=== PATIENT | male | born 1975 | race Caucasian/White ===

== ENCOUNTER 2020-03-11 17:05 | Inpatient (IN) | payer MEDICAID, OTHER, SELFPAY ==
[~2020-03-11] VITALS: Ht 157.5 cm; Wt 119.7 kg
[~2020-03-11 17:05] MED LIST: LIDOCAINE HCL/PF 1% 2ML VIAL ONE
[2020-03-11] MEDS ORDERED: SODIUM CHLORIDE 0.9% 1,000 ML IV ONE (17:28)
[2020-03-11 17:57] LABS: BG BASE EXCESS -9.7 mmol/L (-2.0-2.0); BG CARBOXYHEMOGLOBIN 0.3 % (0.5-1.5); BG DEOXYHEMOGLOBIN 3.1 % (0.0-5.0); BG HCO3 ACT 16.1 mmol/L (22.0-26.0); BG OXYGEN SATURATION 96.9 % (92.0-98.5); BG OXYHEMOGLOBIN 96.6 % (94.0-97.0); BG PCO2 34.5 mmHg (35.0-45.0); BG PH 7.286 (7.350-7.450); BG PO2 103.6 mmHg (75.0-100.0); BG SAMPLE SITE LEFT BRACHIAL; BG TOTAL HEMOGLOBIN 10.2 g/dL (12.0-18.0); BG VENT MODE ROOM AIR
[2020-03-11 18:13] LABS: BASOPHILS % 0.3 % (0.0-2.0); EOSINOPHILS % 0.3 % (0.0-5.0); HEMATOCRIT. 24.4 % (42.0-52.0); HEMOGLOBIN. 8.2 g/dL (14.0-18.0); LYMPHOCYTES % 8.4 % (20.0-50.0); MEAN CORPUSCULAR HEMOGLOBIN 29.9 pg (28.0-32.0); MEAN CORPUSCULAR VOLUME 88.9 fL (80.0-94.0); MEAN PLATELET VOLUME 9.4 fl (7.4-10.4); MONOCYTES % 4.8 % (2.0-8.0); NEUTROPHILS % 86.2 % (40.0-76.0); PLATELET 178 x1000/uL (130-400); RED BLOOD CELL COUNT 2.75 mill/uL (4.7-6.1)
[2020-03-11 18:20] LABS: CHLORIDE 107 mEq/L (98-107)
[2020-03-11 18:26] LABS: PHOSPHORUS 7.3 mg/dL (2.5-4.9)
[2020-03-11 18:37] LABS: INR 1.1; PROTHROMBIN TIME 11.7 sec (9.6-11.0)
[2020-03-11] MEDS ORDERED: WATER IV ONE (18:45)
[2020-03-11] MEDS ORDERED: CALCIUM GLUCONATE IV ONE (18:45)
[2020-03-11] MEDS ORDERED: DEXTROSE 5% IV ONE (18:45)
[2020-03-11] MEDS ORDERED: ALBUTEROL (0.083%) 2.5MG/3ML NEB HHN ONE (18:45)
[2020-03-11] MEDS ORDERED: INSULIN REGULAR (HUMULIN R) UD 100 UNITS/ML SYR IV ONE (19:00)
[2020-03-11] MEDS ORDERED: DEXT 5% IV NR ×2 (19:00→22:30)
[2020-03-11] MEDS ORDERED: CALCIUM GLUCONATE IV NR ×2 (19:00→22:30)
[2020-03-11] MEDS ORDERED: DEXTROSE 50% WATER 50ML SYRINGE IV ONE (19:00)
[2020-03-11] MEDS ORDERED: CALCIUM GLUCONATE 3,000 MG in DEXT 5% WATER 250 ML IV NR (19:00)
[2020-03-11] MEDS ORDERED: WATER IV NR ×2 (19:00→22:30)
[2020-03-11 19:32] LABS: CLARITY URINE TURBID (CLEAR); COLOR URINE YELLOW (YELLOW); KETONES URINE NEGATIVE (NEGATIVE); LEUKOCYTE ESTERASE URINE TRACE (NEGATIVE); NITRITE URINE NEGATIVE (NEGATIVE); OCCULT BLOOD URINE 1+ (NEGATIVE); PROTEIN URINE 4+ (NEGATIVE); SPECIFIC GRAVITY URINE 1.026 (1.005-1.030); UROBILINOGEN URINE 0.2 E.U./dL (0.2-1.0)
[2020-03-11] MEDS ORDERED: SODIUM BICARBONATE 8.4% 1 MEQ/ML 50ML SYR IV ONE ×2 (19:45→21:45)
[2020-03-11] MEDS ORDERED: INSULIN REGULAR (HUMULIN R) 300UNITS/3ML IV ONE (20:00)
[2020-03-11] MEDS ORDERED: LIDOCAINE HCL/PF 1% 2ML VIAL ONE (20:00)
[2020-03-11 21:18] LABS: CHLORIDE 106 mEq/L (98-107)
[2020-03-11 21:24] LABS: PHOSPHORUS 6.7 mg/dL (2.5-4.9)
[2020-03-11] MEDS ORDERED: LIDOCAINE HCL 1% 20ML VIAL (Pyxis) INJ INFIL ONE (21:45)
[2020-03-11] MEDS ORDERED: CALCIUM GLUCONATE 100MG/ML 10ML VIAL IV ONE (21:45)
[2020-03-12] VITALS (67 sets, daily range): BP systolic 125–230; BP diastolic 66–122
[2020-03-12] MEDS ORDERED: ONDANSETRON HCL 4MG/2ML INJ IV PRN (00:15)
[2020-03-12] MEDS ORDERED: DEXTROSE 50% WATER 50ML SYRINGE IV PRN (00:15)
[2020-03-12] MEDS ORDERED: DIPHENHYDRAMINE 50MG/ML VIAL IV PRN (00:15)
[2020-03-12] MEDS ORDERED: ACETAMINOPHEN 325MG TABLET PO PRN (00:15)
[2020-03-12] MEDS ORDERED: SODIUM POLYSTYRENE SULFONATE 15 G/60 ML BOT PO SCH (01:00)
[2020-03-12] MEDS: CLONIDINE 0.1MG TABLET PO PRN ×3 (02:32→21:55)
[2020-03-12] MEDS: LABETALOL 5MG/ML SYR 20 MG/4 ML SYRINGE IV PRN (03:59)
[2020-03-12] MEDS ORDERED: DIATR MEGLU/DIATRIZOATE SOLN 30ML PO SCH (04:45)
[2020-03-12] MEDS ORDERED: NICARDIPINE 100 MG in SODIUM CHLORIDE 0.9% 60 ML IV PRN (05:30)
[2020-03-12] MEDS: PANTOPRAZOLE SODIUM 40 MG/VIAL IV SCH (05:33)
[2020-03-12] MEDS: DEXT 5%/0.9% NACL 1,000 ML IV SCH (05:34)
[2020-03-12] MEDS: SODIUM CHLORIDE 0.9% INJ 3ML FLUSH IVF SCH ×3 (06:00→21:56)
[2020-03-12] MEDS: BLOOD SUGAR DIAGNOSTIC STRIP TEST SCH ×4 (06:30→21:55)
[2020-03-12] MEDS: INSULIN LISPRO 100 UNITS/ML SUBCUT SCH ×4 (07:00→21:00)
[2020-03-12] MEDS ORDERED: DILT120C11 MT (07:56)
[2020-03-12] MEDS ORDERED: CHLO25TA2 PO (08:00)
[2020-03-12] MEDS ORDERED: FERR325T6 PO (08:02)
[2020-03-12] MEDS ORDERED: LISI40TA4 PO (08:04)
[2020-03-12] MEDS ORDERED: ATOR40TA70 PO (08:05)
[2020-03-12] MEDS: LISINOPRIL 40MG TABLET PO SCH ×2 (09:00→14:30)
[2020-03-12 09:31] LABS: BASOPHILS % 0.2 % (0.0-2.0); EOSINOPHILS % 0.1 % (0.0-5.0); HEMATOCRIT. 25.2 % (42.0-52.0); HEMOGLOBIN. 8.5 g/dL (14.0-18.0); LYMPHOCYTES % 9.3 % (20.0-50.0); MEAN CORPUSCULAR HEMOGLOBIN 29.6 pg (28.0-32.0); MEAN PLATELET VOLUME 8.8 fl (7.4-10.4); MONOCYTES % 6.9 % (2.0-8.0); NEUTROPHILS % 83.5 % (40.0-76.0); PLATELET 191 x1000/uL (130-400); RED BLOOD CELL COUNT 2.86 mill/uL (4.7-6.1); RED CELL DISTRIBUTION WIDTH 14.8 % (11.6-14.6)
[2020-03-12] MEDS ORDERED: INSULIN GLARGINE UD 100 UNITS/ML SYR SUBCUT SCH (10:00)
[2020-03-12] MEDS ORDERED: CEFTRIAXONE 1 G PREMIX 50 ML IV SCH (12:45)
[2020-03-12 13:16] LABS: HEPATITIS B SURFACE AB < 3.1 mIU/mL
[2020-03-12 13:26] LABS: HEPATITIS B SURFACE ANTIGEN NEGATIVE
[2020-03-12 13:56] LABS: HEPATITIS A AB IGM NEGATIVE (NEGATIVE)
[2020-03-12] MEDS: CEFTRIAXONE 1,000 MG in DEXTROSE 5% WATER 50 ML IV SCH (14:27)
[2020-03-12] MEDS: HYDRALAZINE HCL 50MG TABLET PO SCH ×2 (15:33→21:54)
[2020-03-12] MEDS: AMLODIPINE 5MG TABLET PO SCH (15:33)
[2020-03-12] MEDS ORDERED: DIATR MEGLU/DIATRIZOATE SOLN 30ML PO NR (18:30)
[2020-03-12] MEDS: ATORVASTATIN CALCIUM 40MG TABLET PO SCH (21:54)
[2020-03-13 00:19] VITALS: BP 157/70
[2020-03-13 04:00] VITALS: BP 160/73
[2020-03-13] MEDS: HYDRALAZINE HCL 50MG TABLET PO SCH ×3 (05:56→21:51)
[2020-03-13] MEDS: DEXT 5%/0.9% NACL 1,000 ML IV SCH ×2 (05:56→16:50)
[2020-03-13] MEDS: SODIUM CHLORIDE 0.9% INJ 3ML FLUSH IVF SCH ×3 (05:56→21:51)
[2020-03-13] MEDS: BLOOD SUGAR DIAGNOSTIC STRIP TEST SCH ×4 (06:31→21:50)
[2020-03-13 06:42] LABS: BASOPHILS % 0.5 % (0.0-2.0); EOSINOPHILS % 2.3 % (0.0-5.0); HEMOGLOBIN. 8.5 g/dL (14.0-18.0); LYMPHOCYTES % 13.2 % (20.0-50.0); MEAN CORPUSCULAR HEMOGLOBIN 29.7 pg (28.0-32.0); MEAN CORPUSCULAR VOLUME 87.5 fL (80.0-94.0); MEAN PLATELET VOLUME 8.6 fl (7.4-10.4); MONOCYTES % 11.5 % (2.0-8.0); NEUTROPHILS % 72.5 % (40.0-76.0); PLATELET 190 x1000/uL (130-400); RED BLOOD CELL COUNT 2.86 mill/uL (4.7-6.1); RED CELL DISTRIBUTION WIDTH 14.4 % (11.6-14.6)
[2020-03-13 08:02] VITALS: BP 157/70
[2020-03-13] MEDS: AMLODIPINE 5MG TABLET PO SCH (08:52)
[2020-03-13] MEDS: PANTOPRAZOLE SODIUM 40 MG/VIAL IV SCH (08:52)
[2020-03-13] MEDS: LISINOPRIL 40MG TABLET PO SCH (08:52)
[2020-03-13] MEDS: INSULIN LISPRO 100 UNITS/ML SUBCUT SCH ×4 (08:56→21:52)
[2020-03-13] MEDS ORDERED: POTASSIUM CHLORIDE 10MEQ TABLET SR PO SCH (10:15)
[2020-03-13] MEDS ORDERED: POTASSIUM CHLORIDE 20MEQ TABLET SR PO NR (10:30)
[2020-03-13] MEDS: INSULIN GLARGINE UD 100 UNITS/ML SYR SUBCUT SCH (11:41)
[2020-03-13 11:56] VITALS: BP 150/71
[2020-03-13] MEDS: CEFTRIAXONE 1,000 MG in DEXTROSE 5% WATER 50 ML IV SCH (14:39)
[2020-03-13 16:09] VITALS: BP 174/71
[2020-03-13 20:39] VITALS: BP 183/90
[2020-03-13] MEDS: ATORVASTATIN CALCIUM 40MG TABLET PO SCH (21:51)
[2020-03-14] VITALS: BP 164/96
[2020-03-14] MEDS: CLONIDINE 0.1MG TABLET PO PRN ×2 (01:36→21:20)
[2020-03-14 04:00] VITALS: BP 148/76
[2020-03-14] MEDS: HYDRALAZINE HCL 50MG TABLET PO SCH ×3 (06:04→21:19)
[2020-03-14] MEDS: SODIUM CHLORIDE 0.9% INJ 3ML FLUSH IVF SCH ×3 (06:04→21:20)
[2020-03-14 06:46] LABS: BASOPHILS % 0.4 % (0.0-2.0); EOSINOPHILS % 2.5 % (0.0-5.0); HEMATOCRIT. 27.8 % (42.0-52.0); HEMOGLOBIN. 9.3 g/dL (14.0-18.0); MEAN CORPUSCULAR HEMOGLOBIN 29.7 pg (28.0-32.0); MEAN CORPUSCULAR VOLUME 88.2 fL (80.0-94.0); MEAN PLATELET VOLUME 8.8 fl (7.4-10.4); MONOCYTES % 10.4 % (2.0-8.0); NEUTROPHILS % 69.7 % (40.0-76.0); PLATELET 228 x1000/uL (130-400); RED BLOOD CELL COUNT 3.15 mill/uL (4.7-6.1); RED CELL DISTRIBUTION WIDTH 14.7 % (11.6-14.6)
[2020-03-14] MEDS ORDERED: HEPARIN 100 UNITS/1 ML VIAL IVF ONE (07:00)
[2020-03-14] MEDS: BLOOD SUGAR DIAGNOSTIC STRIP TEST SCH ×4 (07:09→21:20)
[2020-03-14 08:00] VITALS: BP 146/81
[2020-03-14] MEDS: AMLODIPINE 5MG TABLET PO SCH (09:00)
[2020-03-14] MEDS: LISINOPRIL 40MG TABLET PO SCH (09:00)
[2020-03-14] MEDS: INSULIN GLARGINE UD 100 UNITS/ML SYR SUBCUT SCH (10:00)
[2020-03-14] MEDS: PANTOPRAZOLE SODIUM 40 MG/VIAL IV SCH (10:54)
[2020-03-14] MEDS: INSULIN LISPRO 100 UNITS/ML SUBCUT SCH ×4 (10:55→21:30)
[2020-03-14 12:00] VITALS: BP 168/72
[2020-03-14] MEDS: CEFTRIAXONE 1,000 MG in DEXTROSE 5% WATER 50 ML IV SCH (15:45)
[2020-03-14] MEDS: DEXT 5%/0.9% NACL 1,000 ML IV SCH (15:45)
[2020-03-14 15:52] VITALS: BP 157/63
[2020-03-14] MEDS ORDERED: POTASSIUM CHLORIDE 20MEQ/PACKET PO NR (17:15)
[2020-03-14 20:00] VITALS: BP 178/94
[2020-03-14] MEDS: ATORVASTATIN CALCIUM 40MG TABLET PO SCH (21:19)
[2020-03-14 21:45] LABS: CREATININE URINE (RAW) 88.8 mg/dl
[2020-03-15] VITALS: BP 135/73
[2020-03-15 04:00] VITALS: BP 174/97
[2020-03-15] MEDS: CLONIDINE 0.1MG TABLET PO PRN (06:59)
[2020-03-15] MEDS: SODIUM CHLORIDE 0.9% INJ 3ML FLUSH IVF SCH ×3 (06:59→21:18)
[2020-03-15] MEDS: HYDRALAZINE HCL 50MG TABLET PO SCH ×3 (06:59→21:17)
[2020-03-15] MEDS: BLOOD SUGAR DIAGNOSTIC STRIP TEST SCH ×4 (07:00→21:18)
[2020-03-15] MEDS: DEXT 5%/0.9% NACL 1,000 ML IV SCH ×2 (07:00→13:46)
[2020-03-15 08:00] VITALS: BP 166/92
[2020-03-15] MEDS: FAMOTIDINE 20MG/2ML VIAL IV SCH (09:49)
[2020-03-15] MEDS: AMLODIPINE 5MG TABLET PO SCH (09:50)
[2020-03-15] MEDS: INSULIN GLARGINE UD 100 UNITS/ML SYR SUBCUT SCH (09:52)
[2020-03-15] MEDS: INSULIN LISPRO 100 UNITS/ML SUBCUT SCH ×4 (10:34→21:19)
[2020-03-15 12:00] VITALS: BP 133/76
[2020-03-15] MEDS: LISINOPRIL 40MG TABLET PO SCH (13:37)
[2020-03-15] MEDS: CEFTRIAXONE 1,000 MG in DEXTROSE 5% WATER 50 ML IV SCH (15:07)
[2020-03-15 16:00] VITALS: BP 156/86
[2020-03-15] MEDS ORDERED: INFLUENZA VACCINE 05/PF 0.5 ML VIAL IM ONE (16:00)
[2020-03-15 16:10] LABS: BASOPHILS % 0.5 % (0.0-2.0); EOSINOPHILS % 3.3 % (0.0-5.0); HEMATOCRIT. 24.4 % (42.0-52.0); HEMOGLOBIN. 8.2 g/dL (14.0-18.0); LYMPHOCYTES % 14.1 % (20.0-50.0); MEAN CORPUSCULAR HEMOGLOBIN 29.4 pg (28.0-32.0); MEAN CORPUSCULAR VOLUME 88.2 fL (80.0-94.0); MEAN PLATELET VOLUME 7.8 fl (7.4-10.4); MONOCYTES % 13.7 % (2.0-8.0); NEUTROPHILS % 68.4 % (40.0-76.0); PLATELET 183 x1000/uL (130-400); RED BLOOD CELL COUNT 2.77 mill/uL (4.7-6.1); RED CELL DISTRIBUTION WIDTH 14.6 % (11.6-14.6)
[2020-03-15 20:00] VITALS: BP 184/95
[2020-03-15] MEDS: ATORVASTATIN CALCIUM 40MG TABLET PO SCH (21:16)
[2020-03-16] VITALS: BP 180/98
[2020-03-16] MEDS: DEXT 5%/0.9% NACL 1,000 ML IV SCH (02:02)
[2020-03-16] MEDS: LABETALOL 5MG/ML SYR 20 MG/4 ML SYRINGE IV PRN (02:02)
[2020-03-16 04:00] VITALS: BP 147/83
[2020-03-16] MEDS: SODIUM CHLORIDE 0.9% INJ 3ML FLUSH IVF SCH ×3 (05:27→21:10)
[2020-03-16] MEDS: HYDRALAZINE HCL 50MG TABLET PO SCH ×3 (05:28→21:10)
[2020-03-16 07:00] LABS: BASOPHILS % 0.2 % (0.0-2.0); EOSINOPHILS % 2.7 % (0.0-5.0); HEMATOCRIT. 25.7 % (42.0-52.0); HEMOGLOBIN. 8.7 g/dL (14.0-18.0); MEAN CORPUSCULAR HEMOGLOBIN 30.2 pg (28.0-32.0); MEAN CORPUSCULAR VOLUME 89.1 fL (80.0-94.0); MEAN PLATELET VOLUME 8.2 fl (7.4-10.4); NEUTROPHILS % 71.1 % (40.0-76.0); PLATELET 211 x1000/uL (130-400); RED BLOOD CELL COUNT 2.89 mill/uL (4.7-6.1); RED CELL DISTRIBUTION WIDTH 14.6 % (11.6-14.6)
[2020-03-16] MEDS: BLOOD SUGAR DIAGNOSTIC STRIP TEST SCH ×4 (07:10→21:10)
[2020-03-16] MEDS: INSULIN LISPRO 100 UNITS/ML SUBCUT SCH ×4 (07:50→21:16)
[2020-03-16 08:00] VITALS: BP 139/77
[2020-03-16] MEDS: AMLODIPINE 5MG TABLET PO SCH (09:32)
[2020-03-16] MEDS: FAMOTIDINE 20MG/2ML VIAL IV SCH (09:32)
[2020-03-16] MEDS: INSULIN GLARGINE UD 100 UNITS/ML SYR SUBCUT SCH (09:33)
[2020-03-16] MEDS: LISINOPRIL 40MG TABLET PO SCH (09:33)
[2020-03-16] MEDS ORDERED: CALCIUM CARBONATE/VITAMIN D3 500MG TABLET PO SCH (10:30)
[2020-03-16 12:00] VITALS: BP 162/83
[2020-03-16] MEDS: CALCIUM ACETATE 667MG CAPSULE PO SCH ×2 (12:52→17:23)
[2020-03-16] MEDS: CEFTRIAXONE 1,000 MG in DEXTROSE 5% WATER 50 ML IV SCH (12:52)
[2020-03-16 16:02] VITALS: BP 166/87
[2020-03-16 20:25] VITALS: BP 180/87
[2020-03-16] MEDS: ATORVASTATIN CALCIUM 40MG TABLET PO SCH (21:09)
[2020-03-17] VITALS (16 sets, daily range): BP systolic 126–219; BP diastolic 63–93
[2020-03-17] MEDS ORDERED: DEXT 5%/0.9% NACL 1,000 ML IV ONE (00:01)
[2020-03-17] MEDS: CLONIDINE 0.1MG TABLET PO PRN ×2 (00:18→20:49)
[2020-03-17] MEDS: SODIUM CHLORIDE 0.9% INJ 3ML FLUSH IVF SCH ×3 (05:33→22:00)
[2020-03-17] MEDS: HYDRALAZINE HCL 50MG TABLET PO SCH ×3 (05:33→20:50)
[2020-03-17] MEDS: BLOOD SUGAR DIAGNOSTIC STRIP TEST SCH ×4 (06:20→20:49)
[2020-03-17] MEDS: INSULIN LISPRO 100 UNITS/ML SUBCUT SCH ×4 (07:50→20:49)
[2020-03-17] MEDS: FAMOTIDINE 20MG/2ML VIAL IV SCH (08:33)
[2020-03-17] MEDS: CALCIUM ACETATE 667MG CAPSULE PO SCH ×3 (08:33→20:49)
[2020-03-17] MEDS: LISINOPRIL 40MG TABLET PO SCH (09:00)
[2020-03-17] MEDS: AMLODIPINE 5MG TABLET PO SCH (09:00)
[2020-03-17] MEDS: INSULIN GLARGINE UD 100 UNITS/ML SYR SUBCUT SCH (09:49)
[2020-03-17] MEDS ORDERED: SODIUM BICARBONATE 4% (2.4MEQ) 5ML VIAL IV ONE (12:42)
[2020-03-17] MEDS ORDERED: LIDOCAINE HCL 1% 20ML VIAL (Pyxis) INJ ONE (12:42)
[2020-03-17] MEDS ORDERED: LIDOCAINE HCL/EPINEPHRINE 1%-EPI 1:100,000 20 ML VIAL ONE (12:43)
[2020-03-17] MEDS ORDERED: FENTANYL CITRATE/PF 50MCG/ML 2ML VIAL ONE (13:53)
[2020-03-17] MEDS ORDERED: FENTANYL CITRATE/PF 50MCG/ML 2ML VIAL IV ONE (14:15)
[2020-03-17] MEDS: CEFTRIAXONE 1,000 MG in DEXTROSE 5% WATER 50 ML IV SCH (14:47)
[2020-03-17] MEDS: ATORVASTATIN CALCIUM 40MG TABLET PO SCH (20:49)
[2020-03-17] MEDS: ACETAMINOPHEN 325MG TABLET PO PRN (23:52)
[2020-03-18] VITALS: BP 173/84
[2020-03-18 04:00] VITALS: BP 156/83
[2020-03-18] MEDS: HYDRALAZINE HCL 50MG TABLET PO SCH ×3 (06:20→22:29)
[2020-03-18] MEDS: BLOOD SUGAR DIAGNOSTIC STRIP TEST SCH ×4 (06:20→21:00)
[2020-03-18] MEDS: SODIUM CHLORIDE 0.9% INJ 3ML FLUSH IVF SCH ×3 (06:20→22:30)
[2020-03-18] MEDS: INSULIN LISPRO 100 UNITS/ML SUBCUT SCH ×3 (07:50→22:31)
[2020-03-18] MEDS: CALCIUM ACETATE 667MG CAPSULE PO SCH ×3 (08:12→17:58)
[2020-03-18 08:40] VITALS: BP 151/82
[2020-03-18] MEDS: AMLODIPINE 5MG TABLET PO SCH (09:00)
[2020-03-18] MEDS: LISINOPRIL 40MG TABLET PO SCH (09:00)
[2020-03-18] MEDS: FAMOTIDINE 20MG/2ML VIAL IV SCH (09:33)
[2020-03-18 12:22] VITALS: BP 142/90
[2020-03-18 16:15] VITALS: BP 175/101
[2020-03-18 20:12] VITALS: BP 190/95
[2020-03-18] MEDS: CLONIDINE 0.1MG TABLET PO PRN (20:14)
[2020-03-18] MEDS: ATORVASTATIN CALCIUM 40MG TABLET PO SCH (22:28)
[2020-03-19] VITALS (7 sets, daily range): BP systolic 137–185; BP diastolic 75–104
[2020-03-19] MEDS: ACETAMINOPHEN 325MG TABLET PO PRN (01:44)
[2020-03-19] MEDS: CLONIDINE 0.1MG TABLET PO PRN (02:35)
[2020-03-19] MEDS: HYDRALAZINE HCL 50MG TABLET PO SCH ×2 (06:06→13:55)
[2020-03-19] MEDS: SODIUM CHLORIDE 0.9% INJ 3ML FLUSH IVF SCH ×2 (06:08→14:01)
[2020-03-19] MEDS: BLOOD SUGAR DIAGNOSTIC STRIP TEST SCH ×2 (06:30→12:30)
[2020-03-19 07:24] LABS: BASOPHILS % 0.5 % (0.0-2.0); EOSINOPHILS % 3.8 % (0.0-5.0); HEMATOCRIT. 25.5 % (42.0-52.0); HEMOGLOBIN. 8.5 g/dL (14.0-18.0); LYMPHOCYTES % 19.9 % (20.0-50.0); MEAN CORPUSCULAR HEMOGLOBIN 29.7 pg (28.0-32.0); MEAN CORPUSCULAR VOLUME 89.3 fL (80.0-94.0); NEUTROPHILS % 64.8 % (40.0-76.0); RED BLOOD CELL COUNT 2.86 mill/uL (4.7-6.1); RED CELL DISTRIBUTION WIDTH 14.9 % (11.6-14.6)
[2020-03-19] MEDS: INSULIN LISPRO 100 UNITS/ML SUBCUT SCH ×2 (07:50→12:30)
[2020-03-19 08:29] LABS: PLATELET 206 x1000/uL (130-400)
[2020-03-19] MEDS: FAMOTIDINE 20MG/2ML VIAL IV SCH (08:57)
[2020-03-19] MEDS: CALCIUM ACETATE 667MG CAPSULE PO SCH ×2 (08:57→13:55)
[2020-03-19] MEDS: LISINOPRIL 40MG TABLET PO SCH (09:00)
[2020-03-19] MEDS: AMLODIPINE 5MG TABLET PO SCH (09:00)
[2020-03-19] MEDS ORDERED: HEPARIN SODIUM 1,000 UNIT/1ML VIAL IV ONE (10:00)
[2020-03-19] MEDS: INSULIN GLARGINE UD 100 UNITS/ML SYR SUBCUT SCH ×2 (10:00→11:20)
== END 2020-03-19 17:45 | disposition home or self-care (01) | DRG 425 ==
LOC: ER 17:05 → EDBEDREQTM 21:50 → EDBEDREQ 21:50 → ENRESERV 03-12 00:24 → MICUSO 03-12 02:16 → 7WST 03-12 20:18 → 6WST 03-12 23:32
PROVIDERS: ADMIT Internal Medicine; ATTEND Internal Medicine
PROC: 5A1D70Z Performance of Urinary Filtration, Intermittent, Less than 6 Hours Per Day (ICD-10-PCS; 2020-03-12)
PROC: 5A1D70Z Performance of Urinary Filtration, Intermittent, Less than 6 Hours Per Day (ICD-10-PCS; 2020-03-14)
PROC: 02HV33Z Insertion of Infusion Device into Superior Vena Cava, Percutaneous Approach (ICD-10-PCS; principal; 2020-03-17)
PROC: B518ZZA Fluoroscopy of Superior Vena Cava, Guidance (ICD-10-PCS; 2020-03-17)
PROC: B548ZZA Ultrasonography of Superior Vena Cava, Guidance (ICD-10-PCS; 2020-03-17)
PROC: 5A1D70Z Performance of Urinary Filtration, Intermittent, Less than 6 Hours Per Day (ICD-10-PCS; 2020-03-17)
PROC: 5A1D70Z Performance of Urinary Filtration, Intermittent, Less than 6 Hours Per Day (ICD-10-PCS; 2020-03-19)
DX: E87.5 Hyperkalemia (principal); R19.7 Diarrhea, unspecified; N18.6 End stage renal disease; N17.9 Acute kidney failure, unspecified; E78.00 Pure hypercholesterolemia, unspecified; E11.51 Type 2 diabetes mellitus with diabetic peripheral angiopathy without gangrene; E43 Unspecified severe protein-calorie malnutrition; D63.8 Anemia in other chronic diseases classified elsewhere; R74.01 Elevation of levels of liver transaminase levels; E78.5 Hyperlipidemia, unspecified; E87.2 Acidosis; E66.01 Morbid (severe) obesity due to excess calories; F10.11 Alcohol abuse, in remission; F14.11 Cocaine abuse, in remission; Y90.9 Presence of alcohol in blood, level not specified; E87.1 Hypo-osmolality and hyponatremia; R74.8 Abnormal levels of other serum enzymes; J96.00 Acute respiratory failure, unspecified whether with hypoxia or hypercapnia; Z20.828 Contact with and (suspected) exposure to other viral communicable diseases; D72.810 Lymphocytopenia; I13.2 Hypertensive heart and chronic kidney disease with heart failure and with stage 5 chronic kidney disease, or end stage renal disease; I50.9 Heart failure, unspecified; E11.22 Type 2 diabetes mellitus with diabetic chronic kidney disease; Z89.512 Acquired absence of left leg below knee; Z68.42 Body mass index [BMI] 45.0-49.9, adult; Z83.3 Family history of diabetes mellitus; Z99.2 Dependence on renal dialysis
CPT/HCPCS: 36415; 36558; 36600; 71045; 74176; 76937; 77001; 80048; 80053; 81003; 82010; 82375; 82570; 82575; 82805; 82962; 83036; 83605; 83735; 83880; 84100; 84145; 84156; 84484; 85025; 86705; 86706; 86709; 86803; 87340; 87635; 90686; 93005; 93970; 99152; 99153; C1750; C1769; C1893; C9113; J0610; J0696; J1642; J1644; J1815; J2405; J3010; J3490; J7030; J7042; J7060; Q9963; G0500

== ENCOUNTER 2020-05-21 09:14 | Emergency (ER) | payer MEDICAID ==
[~2020-05-21] VITALS: Ht 167.6 cm; Wt 77.0 kg
[~2020-05-21 09:14] MED LIST changes: +ATOR40TA70 PO; +CHLO25TA2 PO; +FERR325T6 PO; -LIDOCAINE HCL/PF 1% 2ML VIAL ONE; +LISI40TA4 PO
[2020-05-21] MEDS ORDERED: LABETALOL 5MG/ML SYR 20 MG/4 ML SYRINGE IV ONE (10:15)
[2020-05-21 11:34] LABS: BASOPHILS % 0.6 % (0.0-2.0); EOSINOPHILS % 2.8 % (0.0-5.0); HEMATOCRIT. 39.2 % (42.0-52.0); LYMPHOCYTES % 18.6 % (20.0-50.0); MEAN CORPUSCULAR HEMOGLOBIN 31.3 pg (28.0-32.0); MEAN CORPUSCULAR VOLUME 94.2 fL (80.0-94.0); MEAN PLATELET VOLUME 8.8 fl (7.4-10.4); MONOCYTES % 9.1 % (2.0-8.0); NEUTROPHILS % 68.9 % (40.0-76.0); PLATELET 254 x1000/uL (130-400); RED BLOOD CELL COUNT 4.16 mill/uL (4.7-6.1); RED CELL DISTRIBUTION WIDTH 17.7 % (11.6-14.6)
[2020-05-21 11:39] LABS: CHLORIDE 106 mEq/L (98-107)
[2020-05-21 12:07] LABS: PARTIAL THROMBOPLASTIN TIME 29.1 sec (23.4-31.0)
[2020-05-21 17:27] VITALS: BP 171/85
== END 2020-05-21 17:20 | disposition home or self-care (01) ==
LOC: ER 09:22
DX: T82.838A Hemorrhage due to vascular prosthetic devices, implants and grafts, initial encounter (principal); Y82.8 Other medical devices associated with adverse incidents; Y92.89 Other specified places as the place of occurrence of the external cause; I12.0 Hypertensive chronic kidney disease with stage 5 chronic kidney disease or end stage renal disease; N18.6 End stage renal disease; Z99.2 Dependence on renal dialysis
CPT/HCPCS: 36415; 71045; 80053; 85025; 85610; 85730; 86850; 86900; 86901; 93005; 96374; 99285; J3490

== ENCOUNTER 2021-08-28 09:49 | Inpatient (IN) | payer MEDICAID, OTHER ==
[~2021-08-28] VITALS: Ht 165.1 cm; Wt 132.9 kg
[~2021-08-28 09:49] MED LIST changes: +LISI40TA13 PO; -LISI40TA4 PO
[2021-08-28 10:50] LABS: BASOPHILS % 0.2 % (0.0-2.0); EOSINOPHILS % 1.4 % (0.0-5.0); HEMATOCRIT. 31.7 % (42.0-52.0); HEMOGLOBIN. 10.7 g/dL (14.0-18.0); LYMPHOCYTES % 14.2 % (20.0-50.0); MEAN CORPUSCULAR HEMOGLOBIN 32.2 pg (28.0-32.0); MEAN CORPUSCULAR VOLUME 95.6 fL (80.0-94.0); MONOCYTES % 6.4 % (2.0-8.0); NEUTROPHILS % 77.8 % (40.0-76.0); PLATELET 175 x1000/uL (130-400); RED BLOOD CELL COUNT 3.31 mill/uL (4.7-6.1); RED CELL DISTRIBUTION WIDTH 15.9 % (11.6-14.6)
[2021-08-28 10:58] LABS: CHLORIDE 101 mEq/L (98-107)
[2021-08-28] MEDS ORDERED: INSULIN REGULAR (HUMULIN R) 300UNITS/3ML VIAL IV ONE (11:45)
[2021-08-28] MEDS ORDERED: ALBUTEROL (0.083%) 2.5MG/3ML NEB HHN ONE (11:45)
[2021-08-28] MEDS ORDERED: DEXTROSE 50% WATER 50ML SYRINGE IV ONE (11:45)
[2021-08-28] MEDS ORDERED: ALBUTEROL (0.5%) 2.5MG/0.5ML NEB HHN NR (12:45)
[2021-08-28] MEDS ORDERED: LORAZEPAM 2MG/ML CPJ IV PRN (13:15)
[2021-08-28] MEDS ORDERED: DEXTROSE 50% WATER 50ML SYRINGE IV PRN (13:15)
[2021-08-28] MEDS: AMLODIPINE 10MG TABLET PO SCH (13:30)
[2021-08-28] MEDS: INSULIN LISPRO 100 UNITS/ML SUBCUT SCH ×3 (13:58→20:58)
[2021-08-28 13:59] LABS: HEPATITIS B SURFACE ANTIGEN NEGATIVE
[2021-08-28] MEDS: BLOOD SUGAR DIAGNOSTIC STRIP TEST SCH ×3 (14:01→20:57)
[2021-08-28] MEDS: ONDANSETRON HCL 4MG/2ML INJ IV PRN (14:40)
[2021-08-28] MEDS: LEVETIRACETAM 500MG TABLET PO SCH (21:31)
[2021-08-28 22:55] VITALS: BP 133/70
[2021-08-29] VITALS: BP 112/55
[2021-08-29] MEDS ORDERED: AMLO10TA80 PO (02:35)
[2021-08-29] MEDS ORDERED: INSU100I32 SQ (02:35)
[2021-08-29] MEDS ORDERED: CALC667C MT (02:35)
[2021-08-29] MEDS ORDERED: INSU100I24 SQ (02:35)
[2021-08-29] MEDS ORDERED: GABA-529 PO (02:35)
[2021-08-29] MEDS ORDERED: ATEN50TA PO (02:35)
[2021-08-29 04:00] VITALS: BP 131/74
[2021-08-29] MEDS: ACETAMINOPHEN 325MG TABLET PO PRN ×2 (04:27→15:44)
[2021-08-29 06:56] LABS: BASOPHILS % 0.5 % (0.0-2.0); EOSINOPHILS % 1.8 % (0.0-5.0); HEMOGLOBIN. 10.1 g/dL (14.0-18.0); LYMPHOCYTES % 22.6 % (20.0-50.0); MEAN CORPUSCULAR HEMOGLOBIN 32.7 pg (28.0-32.0); MONOCYTES % 10.4 % (2.0-8.0); NEUTROPHILS % 64.7 % (40.0-76.0); PLATELET 176 x1000/uL (130-400); RED BLOOD CELL COUNT 3.09 mill/uL (4.7-6.1); RED CELL DISTRIBUTION WIDTH 15.9 % (11.6-14.6)
[2021-08-29] MEDS: BLOOD SUGAR DIAGNOSTIC STRIP TEST SCH ×4 (07:20→21:19)
[2021-08-29 08:15] VITALS: BP 130/60
[2021-08-29] MEDS: INSULIN LISPRO 100 UNITS/ML SUBCUT SCH ×4 (08:38→21:49)
[2021-08-29] MEDS: AMLODIPINE 10MG TABLET PO SCH (08:40)
[2021-08-29] MEDS: LEVETIRACETAM 500MG TABLET PO SCH ×2 (08:40→21:47)
[2021-08-29 11:32] VITALS: BP 133/50
[2021-08-29 16:09] VITALS: BP 136/62
[2021-08-29 20:00] VITALS: BP 131/68
[2021-08-30] VITALS: BP 115/64
[2021-08-30 04:00] VITALS: BP 114/55
[2021-08-30] MEDS: ACETAMINOPHEN 325MG TABLET PO PRN (06:53)
[2021-08-30] MEDS: ONDANSETRON HCL 4MG/2ML INJ IV PRN (06:53)
[2021-08-30] MEDS: BLOOD SUGAR DIAGNOSTIC STRIP TEST SCH ×3 (06:53→17:25)
[2021-08-30 08:00] VITALS: BP 141/62
[2021-08-30] MEDS: AMLODIPINE 10MG TABLET PO SCH (08:53)
[2021-08-30] MEDS: INSULIN LISPRO 100 UNITS/ML SUBCUT SCH ×3 (08:53→18:45)
[2021-08-30] MEDS: LEVETIRACETAM 500MG TABLET PO SCH (08:53)
[2021-08-30 12:00] VITALS: BP 138/63
[2021-08-30] MEDS ORDERED: INSULIN GLARGINE UD 100 UNITS/ML SYR SUBCUT NR (14:30)
[2021-08-30 16:00] VITALS: BP 165/72
[2021-08-30 19:39] VITALS: BP_SYST 147; BP_DIAS 81; BP_DIAS 87
== END 2021-08-30 20:20 | disposition home or self-care (01) | DRG 53 ==
LOC: ER 10:01 → 6WST 12:39 → CANRESERV 20:39 → ENRESERV 20:39 → 6WST 22:55
PROVIDERS: ADMIT Internal Medicine; ATTEND Internal Medicine
PROC: 5A1D70Z Performance of Urinary Filtration, Intermittent, Less than 6 Hours Per Day (ICD-10-PCS; 2021-08-28)
PROC: 5A1D70Z Performance of Urinary Filtration, Intermittent, Less than 6 Hours Per Day (ICD-10-PCS; principal; 2021-08-30)
DX: G40.909 Epilepsy, unspecified, not intractable, without status epilepticus (principal); I12.0 Hypertensive chronic kidney disease with stage 5 chronic kidney disease or end stage renal disease; E11.22 Type 2 diabetes mellitus with diabetic chronic kidney disease; E44.0 Moderate protein-calorie malnutrition; E87.1 Hypo-osmolality and hyponatremia; E11.51 Type 2 diabetes mellitus with diabetic peripheral angiopathy without gangrene; D64.9 Anemia, unspecified; E87.5 Hyperkalemia; N18.6 End stage renal disease; Z68.42 Body mass index [BMI] 45.0-49.9, adult; Z99.2 Dependence on renal dialysis; Z89.512 Acquired absence of left leg below knee
CPT/HCPCS: 36415; 80048; 80051; 80053; 82962; 85025; 86705; 86709; 86803; 87340; 93005; 99291; J1815; J2405